=== PATIENT | male | born 1965 | race Caucasian/White ===

== ENCOUNTER 2019-09-25 16:28 | Emergency (ER) | payer BC, OTHER ==
[~2019-09-25] VITALS: Ht 182.9 cm; Wt 145.1 kg
[2019-09-25] MEDS ORDERED: SUCCINYLCHOLINE CHLORIDE 20 MG/ML(QUELICIN) IVP ONE (16:29)
[2019-09-25] MEDS ORDERED: ROCURONIUM BROMIDE 10 MG/ML (ZEMURON) IV ONE ×2 (16:29→18:00)
[2019-09-25] MEDS ORDERED: ETOMIDATE 20 MG/ 10 ML VIAL (AMIDATE) IVP ONE ×2 (16:29→18:00)
[2019-09-25] MEDS ORDERED: EPINEPHrine JECT 0.1 MG/ML SYR IVP ONE (16:29)
[2019-09-25] MEDS ORDERED: LIDOCAINE JECT 2% PF 100 MG/5ML SYRINGE IVP ONE ×2 (16:29→20:00)
[2019-09-25 16:30] VITALS: BP_SYST 192
--- NOTE | 2019-09-25 16:30 | NUR ---
Placed in room 04 . Placed on monitor and storage bin tender, blood pressure machine and pulse oximeter. To gown for exam. Side rails up.
[2019-09-25] MEDS ORDERED: NACL 0.9% 1,000 ML IV ONE (17:00)
--- NOTE | 2019-09-25 17:29 | NUR ---
Patient brought in with ALOC and hyperglycemia, blood sugar on admission is 547. Patient unable to follow commands. Patient blood pressure 179/116. Dr. Liu at bedside. Patient's PMH includes HTN and DM. Will continue to monitor.
[2019-09-25] MEDS ORDERED: niCARdipine 25 MG in D5W 240 ML IV PRN (17:30)
--- NOTE | 2019-09-25 17:30 | NUR ---
# 20 gauge angiocath placed to LFA. Use of asceptic technique. Opsite placed over site. Blood return noted. Blood for lab drawn from site. Flushed with 10 cc of normal saline. No evidence of infiltration noted. Patient tolerated well.
[2019-09-25 17:53] LABS: BASOPHILS % (AUTO) 0.4 % (0.0-2.0); HEMATOCRIT 39.1 % (36-54); HEMOGLOBIN 13.1 g/dL (14.0-18.0); LYMPHOCYTES # (AUTO) 0.7 K/uL (1.0-5.5); LYMPHOCYTES % (AUTO) 6.1 % (20.5-51.5); MEAN CORPUSCULAR HEMOGLOBIN 29 pg (27-31); MEAN CORPUSCULAR HGB CONC 33 % (32-36); MEAN CORPUSCULAR VOLUME 87 fL (79.0-98.0); MONOCYTES # (AUTO) 0.6 K/uL (0.0-1.0); MONOCYTES % (AUTO) 5.8 % (1.7-9.3); NEUTROPHILS # (AUTO) 9.6 K/uL (1.8-7.7); NEUTROPHILS % (AUTO) 87.7 % (40.0-70.0); PLATELET COUNT (AUTO) 291 K/uL (130-430); RED BLOOD CELL COUNT(AUTO) 4.49 MIL/uL (4.2-6.2); RED CELL DISTRIBUTION WIDTH 16.7 % (9.0-15.0); WHITE BLOOD COUNT (AUTO) 10.9 K/uL (4.8-10.8)
--- NOTE | 2019-09-25 17:55 | NUR ---
ER Dr. Liu at bedside examining patient.
[2019-09-25] MEDS ORDERED: MANNITOL 25% 12.5GM/50 ML VIAL IVP ONE (18:00)
[2019-09-25] MEDS ORDERED: levETIRAcetam 1,000 MG IV BAG 100 ML IV ONE (18:00)
--- NOTE | 2019-09-25 18:00 | NUR ---
Pt moved to bed 08 for intubation
[2019-09-25] MEDS ORDERED: niCARdipine 2.5 MG/ML, 10 ML VIAL (CARDENE) IV ONE ×2 (18:05)
[2019-09-25 18:13] LABS: ANION GAP 13 (5-15); CALCIUM 9.2 mg/dL (8.4-11.0); CHLORIDE 101 mmol/L (98-107); CREATININE 3.04 mg/dL (0.55-1.30); POTASSIUM 4.5 mmol/L (3.5-5.1); SODIUM SERUM 132 mmol/L (136-145); UREA NITROGEN, BLOOD 47 mg/dL (8-21)
[2019-09-25 18:19] LABS: GFR AFRICAN AMERICAN 28 mL/min (>90); GLUCOSE 547 mg/dL (70-99)
[2019-09-25 18:23] LABS: ALANINE AMINOTRANSFERASE 26 U/L (12-78); ALBUMIN 2.7 g/dL (3.4-4.8); ALCOHOL, BLOOD < 3 mg/dL (<10); ASPARTATE AMINOTRANSFERASE 23 U/L (10-37); TOTAL BILIRUBIN 1.7 mg/dL (0.0-1.0)
--- NOTE | 2019-09-25 18:24 | NUR ---
Lidocaine 100 mg from crash cart administered per Dr. Liu verbal order.
--- NOTE | 2019-09-25 18:28 | NUR ---
Intubation Patient medicated with 20 mg of Etomidate and 50 mg of Rocuronium Wilson for sedation prior to placement of ET tube. Respiratory therapy at bedside prior to placement. Size 7.5 ET tube placed by Dr. Liu. Cuff inflated with 10 cc air. Auscultation of breath sounds over bilateral chest wall. ET tube secured with securement device. O2 sats 98% pulse ox. PCXR ordered to check tube placement.
--- NOTE | 2019-09-25 18:35 | NUR ---
Dr. Liu ordered 18 units regular insulin, once medication was about to be administered, Dr. Liu gave verbal order to only administer 10 units.
[2019-09-25] MEDS ORDERED: MANNITOL ONE (18:49)
[2019-09-25 18:51] LABS: CKMB RELATIVE INDEX 1.6 (0.0-2.9); CREATINE KINASE MB 5.9 ng/mL (0-3.6)
[2019-09-25] MEDS ORDERED: MANNITOL 25%(12.5gm),50ML VIAL 50 ML ONE (18:53)
[2019-09-25] MEDS ORDERED: INSULIN REGULAR, HUMAN 10 UNITS/0.1 ML INJ IVP ONE (19:00)
[2019-09-25] MEDS ORDERED: INSULIN REGULAR, HUMAN 10 UNITS/0.1 ML INJ ONE (19:05)
[2019-09-25] MEDS ORDERED: PROPOFOL DRIP 100 ML IV ONE ×3 (19:30→19:46)
[2019-09-25] MEDS ORDERED: fentaNYL CITRATE/PF 100 MCG/2 ML AMP IVP ONE ×2 (19:30)
[2019-09-25] MEDS ORDERED: LORazepam 2 MG/ML VIAL IVP ONE ×2 (19:30)
--- NOTE | 2019-09-25 19:42 | NUR ---
Patient to be transferred to [facility]. Is being transferred due to higher level of care. Receiving facility has accepting physician and available space. ER physician has signed transfer form. Patient or responsible green party has agreed to transfer and signed form. Patient belongings inventoried and will be sent with patient. Copy of nursing notes, lab reports, EKG, Physicians Orders and X-rays to be sent with patient. Report endorsed to Kimmie CHUN from [facility]. Receiving physician is Dr. Mauricio. [facility] ambulance service has been called for transfer. CCT at bedside.
[2019-09-25] MEDS ORDERED: fentaNYL CITRATE/PF 100 MCG/2 ML AMP ONE (19:45)
[2019-09-25] MEDS ORDERED: LORazepam 2 MG/ML VIAL ONE (19:45)
[2019-09-25 19:58] VITALS: BP_SYST 136
[2019-09-25] MEDS ORDERED: NOREPINEPHRINE BITARTRATE 4 MG in NS 246 ML IV ONE ×4 (20:00)
[2019-09-25] MEDS ORDERED: NOREPINEPHRINE 4 MG/4 ML VIAL IV ONE ×2 (20:17)
== END 2019-09-25 19:42 | disposition short-term general hospital (02) ==
LOC: SED 16:28
DX: I62.9 Nontraumatic intracranial hemorrhage, unspecified (principal); I13.2 Hypertensive heart and chronic kidney disease with heart failure and with stage 5 chronic kidney disease, or end stage renal disease; E11.22 Type 2 diabetes mellitus with diabetic chronic kidney disease; N18.6 End stage renal disease
CPT/HCPCS: 31500; 36415; 36556; 36600; 70450; 71045; 80053; 82550; 82553; 82803; 83605; 83880; 83930; 84484; 85025; 86886; 86900; 86901; 87040; 93005; 96365; 96366; 96368; 96372; 96375; 99291; C1751; G0482; J0171; J0330; J1815; J1953; J2060; J2150; J2704; J3010; J3490